=== PATIENT | male | born 2000 | race Caucasian/White ===

== ENCOUNTER → 2021-11-14 13:28 | Outpatient (CLI) | payer OTHER, MEDICAID, SELFPAY ==
[2021-11-14 13:47] LABS: COVID19 -Nasal RAPID POSITIVE (Negative)
== END ==
PROVIDERS: Visit Provider Physician Assistant
DX: Z20.822 Contact with and (suspected) exposure to COVID-19 (principal)
CPT/HCPCS: 87635